=== PATIENT | female | born 1950 | race Caucasian/White ===

== ENCOUNTER 2018-12-26 09:18 | Day surgery (SDC) | payer BC ==
[2018-12-16 12:37] VITALS: BMI 22.6
[2018-12-26] MEDS ORDERED: MIDAZOLAM HCL 2 MG/2 ML SINGLE DOSE VIAL ONE (11:16)
[2018-12-26] MEDS ORDERED: EPINEPHrine/PF 1 MG/1 ML (1:1,000) AMPULE ONE (11:16)
[2018-12-26] MEDS ORDERED: BUPIVACAINE HCL/PF (5 MG/ML) 30 ML VIAL IJ ONE (11:17)
--- NOTE | 2018-12-26 12:14 | HP ---
History & Physical Update - History History: No Change - Physical Physical: No Change - Assessment Assessment: No Change - Plan Plan: No Change
[2018-12-26] MEDS ORDERED: LIDOCAINE 1%/EPI 1:100000 (20 ML MULTI DOSE VIAL) ONE (12:38)
[2018-12-26] MEDS ORDERED: GUM MASTIC/STORAX/MSAL/ALCOHOL 1 DRP DROPSBTL MC ONE (12:38)
[2018-12-26] MEDS ORDERED: THROMBIN (BOVINE) 5,000 UNIT VIAL TP ONE (13:01)
[2018-12-26] MEDS ORDERED: methylPREDNISolone ACET (DEPO) 40 MG/1 ML VIAL IM ONE (13:01)
[2018-12-26] MEDS ORDERED: GELATIN, ABSORBABLE 100 EACH SPONGE TP ONE (13:03)
[2018-12-26] MEDS ORDERED: GELATIN SPONGE,ABSORBABLE 1 GM PACKET TP ONE (13:03)
[2018-12-26] MEDS ORDERED: oxyCODONE HCL 5 MG TABLET PO PRN ×2 (14:56)
[2018-12-26] MEDS ORDERED: PROMETHAZINE HCL 25 MG/1 ML VIAL IVPB PRN (14:56)
[2018-12-26] MEDS ORDERED: ONDANSETRON 4 MG/2 ML VIAL IVPUSH PRN (14:56)
--- NOTE | 2018-12-26 15:57 | OP ---
Operative Note - Note: Operative Date: 12/26/18 Pre-Operative Diagnosis: lumbar stenosis Operation: laminectomy of L2-L3 and L3-L4 with repair of durotomy Surgeon: Jamie Stovall Physical Testing Supervisor: Antonia Ho Anesthesiologist/MICROBIOLOGY SOIL SCIENTIST: Arben Hazel Anesthesia: Spinal Estimated Blood Loss (mls): 20 Operative Report Dictated: Yes
--- NOTE | 2018-12-26 16:00 | SURG ---
Surgery [place] Pilot Note [place] Pilot: Antonia Ho PA-C Date of Service: 12/26/18 Diagnosis: lumbar stenosis Procedure: laminecotmy of L2-L3 and L3-L4 with repair of durotomy I was present for the entirety of the operative procedure. For further detail, please refer to operative report. Visit type - Case Type Case Type: Scheduled - Emergency Emergency Visit: No - New patient This patient is new to me today: Yes Date on this admission: 12/26/18
[2018-12-26 16:21] VITALS: TEMP 97.5
[2018-12-26 17:28] VITALS: BP 128/70; PULSE 77
--- NOTE | 2018-12-29 16:37 | OP ---
DATE OF OPERATION: 12/26/2018 PREOPERATIVE DIAGNOSIS: Spinal stenosis, L2 to L4. POSTOPERATIVE DIAGNOSIS: Spinal stenosis, L2 to L4. PROCEDURE PERFORMED: Laminectomy, L2-3, L3-4. SURGEON: Jamie Stovall MD MIXER OPERATOR: IVY Peter ESTIMATED BLOOD LOSS: 50 mL INTRAVENOUS FLUIDS: ANESTHESIA: Spinal/erector spinae block. COMPLICATIONS: None. DISPOSITION: Patient brought to the PACU in stable condition. INDICATIONS FOR SURGERY: The patient is a 68-year-old female who has been suffering from pain from her back down her leg. X-rays and MRI were completed which noted that she had spinal stenosis from L2 to L4. She had gone through an exhaustive course of treatment for this, which included medications, physical therapy as well as injections. Unfortunately, her pain continued to persist despite all this. At this point, risks, benefits, and alternatives were discussed, and the patient consented to surgery. DESCRIPTION OF PROCEDURE: Patient was brought to the operating room by the anesthesia staff. After appropriate patient identification was performed, spinal anesthesia was given, and an erector spinae block was given. Patient was able to position herself prone onto the Tray frame with all areas of bony prominences well padded at this time. Two needles were placed into her back to tk off the L2 to L4 sections. X-ray was taken to confirm this as correct. Tigrett were removed, and 10 mL of lidocaine with epinephrine were injected in her back at this time. Her back was prepped and draped in a sterile manner. At this point, a timeout was completed. An incision was made from the top of L2 down to the bottom of L4. Dissection was carried down to the fascia. Fascia was split open at this time, and appropriate retractors were then placed in. A spinal needle was placed onto the L3 lamina to tk off the L3-4 level. X-ray was taken to confirm this as correct. The needle was removed, and the interspinous ligament at L2-3 and L3-4 was removed. The spinous process of L3 was removed. The lamina of L3 was removed. The flavum was removed. A complete decompression was performed such that by the end of the procedure, the L3 and L4 nerve roots appeared to be well decompressed. All bleeding was well controlled at this time. Steroid was placed over the nerve root. FloSeal was placed over that. The fascia was closed with a No. 1 Vicryl suture. Subcutaneous tissues were closed with 2-0 Vicryl suture. Skin was closed with 3-0 Monocryl suture. Dermabond was applied. Steri-Strips were applied. A sterile dressing was applied. Patient was placed supine on the OR bed and brought to the PACU in stable condition. Kevin VALENCIA/[id number] MTDD
== END 2018-12-26 17:10 | disposition home or self-care (01) ==
LOC: FASU 09:18
PROVIDERS: ATTEND Orthopaedic Surgery Orthopaedic Surgery of the Spine
PROC: 01NB0ZZ Release Lumbar Nerve, Open Approach (ICD-10-PCS; principal; 2018-12-26 12:50)
DX: M48.061 Spinal stenosis, lumbar region without neurogenic claudication (principal)
CPT/HCPCS: 72100-TC-FY; 94760